=== PATIENT | male | born 1945 ===

== ENCOUNTER 2022-12-30 09:58 | Emergency (ER) | payer MEDICARE, OTHER, SELFPAY ==
[2022-12-30] VITALS (10 sets, daily range): BP systolic 120–159; BP diastolic 80–95; PULSE 64–81; RESP 16–20; TEMP 36.1–36.6; O2SAT 94–98; BMI 28.7
--- NOTE | 2022-12-30 10:25 | CRLHL7_ITS ---
For Patients: As a result of the Century Cures Act, medical imaging exams and procedure reports are released immediately into your electronic medical record. You may view this report before your referring provider. If you have questions, please contact your health care provider. INDICATION: FALL, LT SIDE HEMATOMA, HEADACHE COMPARISON: 04/09/2011 TECHNIQUE: A CT volumetric acquisition was performed of the brain without IV contrast. Please note that all CT scans at this facility use dose modulation, iterative reconstruction, and/or weight-based dosing when appropriate to reduce radiation dose to as low as reasonably achievable. FINDINGS: Generalized cortical atrophy noted. Chronic patchy areas of decreased attenuation in the white matter noted bilaterally. No hemorrhage or midline shift. No extra-axial fluid collection or hydrocephalus. Mucous retention cyst left maxillary sinus measuring 1.9 cm. No fracture. IMPRESSION: No intracranial hemorrhage. Chronic senescent changes. Please note that all CT scans at this facility use dose modulation, iterative reconstruction, and/or weight-based dosing when appropriate to reduce radiation dose to as low as reasonably achievable. Dictated by Quinton Gar MD @ 12/30/2022 11:15:25 AM (Electronically Signed)
--- NOTE | 2022-12-30 11:31 | ED.GENADULT ---
HPI - General Adult General Date Seen: 12/30/22 Chief complaint: Fall/Minor Trauma Stated complaint: fall- on blood thinners Time Seen by Provider: 12/30/22 10:17 History of Present Illness HPI narrative: This is a very pleasant 77-year-old male who presents to the ER today with his and daughter. They are concerned because he had a slip and fall in the shower this morning leading to a left temporal head injury. He also had superficial scrapes to his left rib cage and flank without any pain there. He is on Plavix for stroke prophylaxis. No other blood thinners. He recalls being in the shower this morning. He was not dizzy or lightheaded. He simply lost his balance and slipped. He fits felt himself falling. He turned his head so that he would not hit his face against the room in the shower and then struck his left synagogue. He was not knocked out. He also had a minor scrape to his left upper back on the rim of the shower. He has no concerned there. No trouble breathing. No rib pain. No back pain. He did not injury his upper or lower extremities. No chest pain or abdominal pain. No other complaints. He has been completely alert and oriented since the fall. No headache. No blurry vision. No nausea vomiting. No confusion. No focal neurologic deficits. No neck pain. 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 Related Data Home Medications Medication Instructions Recorded Confirmed clopidogrel 75 mg tablet (Plavix) 75 mg PO DAILY 12/30/22 12/30/22 pravastatin 20 mg tablet 20 mg PO QHS 12/30/22 12/30/22 Allergies Allergy/AdvReac Type Severity Reaction Status Date / Time aspirin Allergy Severe Hives Verified 12/30/22 10:05 meloxicam [From Mobic] Allergy Severe Verified 12/30/22 10:05 [facility] [place] Social History Smoking Status: Never smoker Do you use any of these nicotine containing products: None Second hand tobacco smoke exposure: No How often do you have a drink containing alcohol: 2-3 times a week How many standard drinks containing alcohol do you have on a typical day: 1 or 2 AUDIT-C Alcohol total score: 3 Non-prescribed substance use: denies use service: Yes Exam Narrative: Exam Narrative: Constitutional: Appears well-developed and well-nourished. Alert. Conversant. Non toxic. HENT: Head: Left temporal scalp hematoma. No depressed skull fracture, [place] Eyes, Hsu's sign, or hemotympanum. Face normal. TMs normal Nose: Nose normal. Mouth/Throat: Oral mucosa is clear and moist. no trismus. Pharynx normal. Tonsils symmetric. No tonsillar enlargement, erythema, or exudate. Eyes: Conjunctivae normal. EOM normal. Pupils equal, round, and reactive to light. No scleral icterus. Neck: Normal range of motion. Neck supple. No tracheal deviation present. Cardiovascular: Normal rate, regular rhythm. No gallop. No friction rub. No murmur heard. Symmetric radial artery pulses Pulmonary/Chest: Effort normal. No stridor. No respiratory distress. No wheezes. No rales. No rhonchi . No tenderness. Abdominal: Soft. Bowel sounds normal. No distension. No mass. No tenderness. No rebound. No guarding. Musculoskeletal: RUE: Normal range of motion. No tenderness. No deformity LUE: Normal range of motion. No tenderness. No deformity RLE: Normal range of motion. No edema. No tenderness. No deformity LLE: Normal range of motion. No edema. No tenderness. No deformity Superficial abrasion/superficial contusion of left posterior rib cage in left flank. No bony rib tenderness or crepitus. No flank tenderness. No midline tenderness or step-off of the C-spine, T-spine, L-spine. Pelvis stable. Lymph: No cervical adenopathy. Neurological: Mental status normal. Attention normal. Alert and oriented x3. GCS 15. Memory normal. Speech fluent. Cognition normal. Cranial Nerves intact II-XII except I did not formally test gag or visual acuity. EOMI. Palate elevates symmetrically and tongue protrudes in the midline. Strength: 5/5 trapezius on the right and left 5/5 deltoid on the right and left 5/5 biceps on the right and left 5/5 triceps on the right and left 5/5 pool table mechanic on the right and left 5/5 thumb opposition on the right and left 5/5 finger abduction on the right and left 5/5 hip flexors (L3) on the right and left 5/5 quadriceps (L4) on the right and left 5/5 tibialis anterior on the right and left 5/5 EHL (L5) on the right and left 5/5 gastrocnemius (S1) on the right and left 5/5 hamstring on the right and left Sensation intact to light touch in both upper extremities (C4-T1) Sensation intact to light touch in Both lower extremities (L4-S1). Finger to nose and coordination normal. Gait normal. Skin: Skin is warm and dry. No rash noted. No pallor. Normal capillary refill. Psychiatric: Normal mood. Normal affect. Const: Vital Signs, click to edit/add: Vital Signs - 24 hr 12/30/22 10:05 12/30/22 10:06 12/30/22 10:07 Temperature 97.0 F L Pulse Rate 71 69 Pulse Rate [Pulse Oximeter] 70 Respiratory Rate 16 Blood Pressure 147/95 H Blood Pressure [Le ft Upper Arm] 147/95 H Pulse Oximetry 96 95 95 Oxygen Delivery Me thod Room Air 12/30/22 10:15 12/30/22 10:22 12/30/22 10:23 Temperature Pulse Rate 71 81 78 Pulse Rate [Pulse Oximeter] Respiratory Rate Blood Pressure 159/88 H Blood Pressure [Le ft Upper Arm] Pulse Oximetry 95 98 96 Oxygen Delivery Me od 12/30/22 10:30 12/30/22 10:42 12/30/22 10:45 Temperature Pulse Rate 64 67 71 Pulse Rate [Pulse Oximeter] Respiratory Rate Blood Pressure 141/80 H Blood Pressure [Le ft Upper Arm] Pulse Oximetry 94 95 95 [facility] 11:50 Temperature 98 F Pulse Rate Pulse Rate [Pulse Oximeter] 64 Respiratory Rate 20 Blood Pressure Blood Pressure [Le ft Upper Arm] 120/84 Pulse Oximetry 94 Oxygen Delivery Me thod Room Air Course Vital Signs Vital signs: Initial Vital Signs Pulse Rate 71 12/30/22 10:05 Pulse Oximetry 96 12/30/22 10:05 Vital Signs Pulse Rate 71 12/30/22 10:05 Pulse Oximetry 96 12/30/22 10:05 Temperature 98 F 12/30/22 11:50 Pulse Rate 64 12/30/22 11:50 Respiratory Rate 20 12/30/22 11:50 Blood Pressure 120/84 12/30/22 11:50 Pulse Oximetry 94 12/30/22 11:50 Oxygen Delivery Method Room Air 12/30/22 11:50 Medical Decision Making MDM Narrative Medical decision making narrative: This patient presents to the ER today for evaluation of a fall in the shower. He did strike the left synagogue of his head. The fall was mechanical and due to slipping. No syncope or seizure contributing to the fall. In terms of his head injury he does have signs of a left temporal scalp hematoma but no signs of any skull fracture or basal skull fracture. He is at risk for intracranial bleeding because he is on Plavix. Head CT is obtained and is fortunately negative. I discussed the risk for potential for delayed bleeding with the patient and his family. At this point we do not think needs to be admitted for neurologic monitoring. Precautions for return to the ER and repeat neuro imaging carefully reviewed. Questions answered There is no evidence on exam of any C-spine injury. No T or L-spine injury on exam either. He does have evidence for superficial injuries to the skin of his left low posterior ribs and left flank. These would be either superficial abrasions or perhaps a very tiny/early evolving contusions. At this point he is not having any rib tenderness on palpation to, difficulty breathing has clear lung sounds. No evidence for any rib fracture or associated hemothorax/pneumothorax. No evidence for any renal injury. This point I think he needs imaging of his torso. Discussed precautions for return to the ER. He and his family agree. Questions answered. Imaging Data CT scan - head: Radiologist's impression: IMPRESSION: No intracranial hemorrhage. Chronic senescent changes. Discharge Plan Discharge Clinical Impression: Head injury Patient Disposition: Home, Self-Care Condition: Stable Instructions: Head Injury (DC) Additional Instructions: Come back to the ER right away if you have any concerns especially headache, confusion, vomiting, blurry vision, forgetfulness, dizzy spells or any other concerns for head injury. Prescriptions: No Action pravastatin 20 mg tablet 20 mg PO QHS clopidogrel [Plavix] 75 mg tablet 75 mg PO DAILY Follow Up/Referrals: Provider,Not a Local [Primary Care Provider] - Stand Alone Forms: [employer] Info Instructions
== END 2022-12-30 11:50 | disposition home or self-care (01) ==
PROVIDERS: Emergency Provider Emergency Medicine
DX: S09.90XA Unspecified injury of head, initial encounter (principal); W18.2XXA Fall in (into) shower or empty bathtub, initial encounter
CPT/HCPCS: 70450; 99283